=== PATIENT | male | born 2000 | race Hispanic/Latino ===

== ENCOUNTER 2021-03-05 11:15 | Emergency (ER) | payer OTHER ==
[~2021-03-05] VITALS: Ht 182.9 cm; Wt 71.1 kg
[2021-03-05 11:16] VITALS: BP 131/68
[2021-03-05] MEDS ORDERED: DOXY100C37 PO (11:48)
[2021-03-05 12:03] LABS: BASO % 0.3 % (0.0-1.0); EOS # 0.1 10^3/uL (0.0-0.5); HEMATOCRIT 44.1 % (42.0-52.0); LYMPH # 1.3 10^3/uL (1.5-5.0); LYMPH % 14.1 % (24.0-44.0); MEAN CORPUSCULAR HEMOGLOBIN 31.3 pg (27.0-33.0); MEAN CORPUSCULAR VOLUME 91.9 fl (80.0-96.0); MONO # 1.3 10^3/uL (0.0-0.8); NEUTROPHILS # 6.6 10^3/uL (1.5-8.5); NEUTROPHILS % 70.3 % (36.0-66.0); PLATELET COUNT, AUTOMATED 210 10^3/uL (150-450); WHITE BLOOD COUNT 9.3 10^3/uL (4.0-10.0)
[2021-03-07 16:33] LABS: Lyme Disease IgG Ab 18 kDa Ban Absent (.); Lyme Disease IgG Ab 23 kDa Ban Absent (.); Lyme Disease IgG Ab 28 kDa Ban Absent (.); Lyme Disease IgG Ab 30 kDa Ban Absent (.); Lyme Disease IgG Ab 39 kDa Ban Absent (.); Lyme Disease IgG Ab 41 kDa Ban Present (.); Lyme Disease IgG Ab 45 kDa Ban Absent (.); Lyme Disease IgG Ab 58 kDa Ban Absent (.); Lyme Disease IgG Ab 66 kDa Ban Absent (.); Lyme Disease IgG Ab 93 kDa Ban Absent (.); Lyme Disease IgG West Blot Int Negative (.); Lyme Disease IgG/IgM Antibodie <0.91 ISR (0.00-0.90); Lyme Disease IgM Ab 23 kDa Ban Present (.); Lyme Disease IgM Ab 39 kDa Ban Absent (.); Lyme Disease IgM Ab 41 kDa Ban Absent (.); Lyme Disease IgM Ab Quantitati 1.27 index (0.00-0.79); Lyme Disease IgM West Blot Int Negative (.)
== END 2021-03-05 12:03 | disposition home or self-care (01) ==
LOC: M ED 11:15
DX: S40.862A Insect bite (nonvenomous) of left upper arm, initial encounter (principal); W57.XXXA Bitten or stung by nonvenomous insect and other nonvenomous arthropods, initial encounter; Y92.89 Other specified places as the place of occurrence of the external cause; Y93.89 Activity, other specified; Y99.8 Other external cause status; L02.414 Cutaneous abscess of left upper limb

== ENCOUNTER 2022-07-23 07:30 | Day surgery (SDC) | payer OTHER ==
[~2022-07-23] VITALS: Ht 182.9 cm; Wt 73.4 kg
[~2022-07-23 07:30] MED LIST: CEPH500T PO; DOXY-443 PO; LIDOCAINE W/EPINEPHRINE 1% 20ML VIAL XX ONE; SODIUM BICARBONATE 8.4% INJ 50MEQ 50 ML VIAL XX ONE; TRAM50TA2 PO
[2022-07-23] MEDS ORDERED: LIDOCAINE 1% MDV 20ML VIAL As Ordered ONE (08:43)
[2022-07-23] MEDS ORDERED: LIDOCAINE 1% MDV 20ML VIAL XX ONE (08:50)
[2022-07-23] MEDS ORDERED: BACITRACIN OINTMENT 30GM TUBE As Ordered ONE (09:39)
[2022-07-23] MEDS ORDERED: POLYSPORIN TOPICAL OINTMENT 15GM As Ordered ONE (09:49)
[2022-07-23 10:20] VITALS: BP 123/67
[2022-07-23] MEDS ORDERED: TRAM50TA2 PO (10:30)
== END 2022-07-23 10:41 | disposition home or self-care (01) ==
LOC: M SDC 07:30
PROVIDERS: ATTEND Orthopaedic Surgery Hand Surgery
DX: S62.634A Displaced fracture of distal phalanx of right ring finger, initial encounter for closed fracture (principal); S67.194A Crushing injury of right ring finger, initial encounter; W23.0XXA Caught, crushed, jammed, or pinched between moving objects, initial encounter; Y92.138 Other place on military base as the place of occurrence of the external cause; Y99.1 Military activity